=== PATIENT | male | born 1980 | race Caucasian/White ===

== ENCOUNTER 2018-09-10 02:47 | Emergency (ER) | payer OTHER, SELFPAY ==
[2018-09-10 02:48] VITALS: BP 164/111; PULSE 117; RESP 18; TEMP 36.6; O2SAT 100; BMI 22.9
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
--- NOTE | 2018-09-10 03:11 | ED.DEP ---
ED Disposition - Plan for ED Patient: Disposition: Home or Assisted Living Chief Complaint: Eye Problem Instructions: ED Contusion Eye Referrals: Beni Medina MD [STAFF PHYSICIAN] - As Needed
--- NOTE | 2018-09-10 03:15 | NURSING ---
PT DOES NOT HAVE GLASSES. IS UNABLE TO PERFORM ACUITY TEST.
[2018-09-10 03:16] VITALS: RESP 18
== END 2018-09-10 03:16 | disposition home or self-care (01) ==
PROVIDERS: Emergency Provider Emergency Medicine
DX: S00.12XA Contusion of left eyelid and periocular area, initial encounter (principal); W50.0XXA Accidental hit or strike by another person, initial encounter
CPT/HCPCS: 99282

== ENCOUNTER → 2019-07-01 06:36 | Outpatient (CLI) | payer OTHER, SELFPAY ==
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
== END ==
PROVIDERS: Referring Provider Psychiatry & Neurology Neurology; Visit Provider Psychiatry & Neurology Neurology
DX: S09.90XD Unspecified injury of head, subsequent encounter (principal); R51 Headache
CPT/HCPCS: 70553; A9575

== ENCOUNTER → 2020-04-07 08:19 | Outpatient (CLI) | payer OTHER, SELFPAY ==
--- NOTE | 2020-04-07 08:19 | RAD_ITS ---
STUDY: X-RAY - LEFT HAND REASON FOR EXAM: Male, 40 years old. Possible trigger finger---pain and and quot;catching and quot; index finger TECHNIQUE: 3 view(s) of the hand. COMPARISON: None. FINDINGS: Normal radiocarpal articulation. Normal distal radioulnar joint. Normal visualized carpal bones. Normal carpal articulations Normal carpometacarpal articulation of the thumb. Normal second through fifth carpometacarpal joints. Normal metacarpi. Normal metacarpophalangeal joint of the thumb. Normal interphalangeal joint of the thumb. Normal proximal and distal phalanges of the thumb. Normal metacarpophalangeal joints of the second through fifth fingers. Normal proximal and distal interphalangeal joints of the second through fifth fingers. Normal phalanges of the second through fifth fingers. The soft tissue structures are unremarkable. RAD/Hand Min 3 Views IMPRESSION: Normal x-ray examination of the hand. Electronically Signed: Ethan Dupont MD at 8:44 EDT , Service support ,
== END ==
PROVIDERS: Referring Provider Orthopaedic Surgery; Visit Provider Orthopaedic Surgery
DX: M79.642 Pain in left hand (principal)
CPT/HCPCS: 73130

== ENCOUNTER 2020-11-19 21:19 | Emergency (ER) | payer OTHER, SELFPAY ==
[2020-04-07 10:42] VITALS: BMI 22.9
[2020-11-19 21:20] VITALS: BP 148/91; PULSE 116; RESP 16; TEMP 36.3; O2SAT 97; BMI 25.0
[2020-11-19] MEDS: Fluorescein 1 MG STRIP 1 STRIP LEFT EYE (21:32)
[2020-11-19] MEDS: Tetracaine 0.5% Ophthalmic Bottle 3 DRP LEFT EYE ×2 (21:32→23:37)
[2020-11-19] MEDS: Diphth,Pertuss(Acell),Tet Vac 0.5 ML Vial IM (21:33)
--- NOTE | 2020-11-19 21:33 | ED.VIS.EYE ---
History of Present Illness Chief Complaint: Eye Problem Informant: Patient Location: Left Eye Onset: Today - JPTA Context: Sudden Onset Timing: Continuous Current Severity: Severe Maximum Severity: Severe Worsened by: light Relieved by: nothing Associated Symptoms - Eyes: Foreign body sensation, Pain, Photophobia, Redness, - - watering History of injury: Yes, Direct trauma - dog accidentally caught him in his left eye w/ paw/claw while laying down in their bed Visual correction: Glasses Narrative: Was accidentally scratched in the eye has their dog was stretching out in bed close to him. Trouble seeing out of that eye, blurry due to tearing. Wears glasses no contacts. Isolated injury. Last tetanus over 10 years ago. Past Medical History - Allergies and Home Meds Allergies/Adverse Reactions: Allergies No Known Allergies Allergy (Verified 11/19/20 21:19) Primary Care Physician: Care Physician,No Primary [Primary Care Provider] - Past Medical History: None Lives: Spouse/ Significant Other Smoking Status: Current every day smoker Review of Systems Eyes: Reports: Blurred vision - left, - - Left eye pain and redness. Denies: Diplopia Gastrointestinal: Denies: Nausea, Vomiting Skin: Denies: Rash, Wounds Neurological: Denies: Headache, Weakness, Numbness Physical Exam Visual Acuity: right: 20/30, left: 20/50, bilateral: 20/40 Visual Acuity: Corrected Eyelid: Erythema left eyelid - Diffuse due to inflammation, no focal injury Right Conjunctiva/Sclera: Diffuse focal injection - Diffuse without gross injury present Left Cornea: Corneal abrasion - superficial flap still attached at top; neg jaky sign, Foreign body - punctate on surface, 5 o'clock from abrasion Extraocular Motion: Normal exam, No pain, No palsy, No nystagmus Pupils: Normal accomodation, PERRL Anterior chamber: Normal exam, Deep and quiet Vital Signs/Narrative: Vital Signs Temp Pulse Resp BP Pulse Ox 11/19/20 21:20 97.3 F L 116 H 16 148/91 H 97 General: Well nourished, Well developed, - - NAD Head: Normocephalic, Atraumatic Skin: Normal color, No rash, No Trauma Neurological: Alert, Oriented x3, Cranial nerves II-XII grossly intact, Normal Strength, Normal Sensation, Normal Gait Psychological: Normal affect, Normal Mood Diagnostic/Tx/Re-eval - Treatment and Re-Evaluation Irrigation: NS Tetracaine: left eye Antibiotic: left eye - Medical Decision Making Patient with resolution of pain with topical tetracaine. Corneal flap was visualized with and without fluorescein dye. There does not seem to be penetration into the anterior chamber. The flap does appear to be superficial, and it is still attached in the 1-2 o'clock region of it, the entire flap is vertical and just to the patient's left of center. Discussed with Dr. Alvarez, he advises topical antibiotic ointment along with a gentle pressure eyepatch/shield with several layers of gauze underneath the prevent the patient from being able to open his eyelid. He will see him in the office at 8 AM in the morning. Patient was given a prescription for a few analgesic Gillett to use as needed. His tetanus was updated. With gentle irrigation at the eyewash station in the department, the small speck foreign body on the surface was removed. ED Disposition - Plan for ED Patient: Disposition: Home or Assisted Living Diagnosis: Corneal abrasion, left Instructions: Corneal Injury Prescriptions: Hydrocodone Bitart/Apap 5-325 [Gillett 5MG-325MG] 1 tab PO Q4H PRN PRN 2 Days #8 tab PRN Reason: Pain Prescription Printed Referrals: Lexa Alvarez MD [STAFF PHYSICIAN] - (tomorrow at 8am -- keep shield in place until then)
[2020-11-19] MEDS: Erythromycin Base 1 OPTH.TUBE 1 APPLIC LEFT EYE (22:48)
== END 2020-11-19 22:55 | disposition home or self-care (01) ==
PROVIDERS: Emergency Provider Emergency Medicine
DX: S05.02XA Injury of conjunctiva and corneal abrasion without foreign body, left eye, initial encounter (principal); F17.200 Nicotine dependence, unspecified, uncomplicated; X58.XXXA Exposure to other specified factors, initial encounter
CPT/HCPCS: 90715; 96372; 99284

== ENCOUNTER 2022-05-30 10:24 | Emergency (ER) | payer OTHER, SELFPAY ==
[2022-05-30 10:25] VITALS: BP 168/105; PULSE 87; RESP 14; TEMP 35.7; O2SAT 100; BMI 20.9
--- NOTE | 2022-05-30 10:44 | EX.ED.DYSGE1 ---
HPI History of Present Illness Chief Complaint: Nausea/Vomiting Narrative Narrative: Patient is withdrawing from Cymbalta. He last took it about 3 days ago, he wants to stop taking it he does not like the way it makes him feel, he was on 60 mg and he stopped cold turkey. He is getting mood swings, panic attacks anxiety and episodes of crying uncontrollably. PFSH PFSH Home Medications hydroxyzine pamoate 50 mg capsule (Vistaril) 50 mg PO TID #14 caps 05/30/22 [Rx Last Taken Unknown] lorazepam 0.5 mg tablet (Ativan) 0.5 mg PO TID PRN anxiety #10 tabs 05/30/22 [Rx Last Taken Unknown] ondansetron 4 mg disintegrating tablet 4 mg PO Q8H #14 tabs 05/30/22 [Rx Last Taken Unknown] Allergy/AdvReac Type Severity Reaction Status Date / Time No Known Allergies Allergy Verified 05/30/22 10:25 Social History Smoking Status: Current every day smoker ROS ROS ED ROS Narrative Past medical history: Reviewed Medications: Reviewed Social history: Noncontributory Review of systems: All systems negative except as indicated General: No fever Eyes: No visual changes ENT: No upper airway congestion, normal voice Neck: No neck pain Cardiovascular: No chest pain Respiratory: No shortness of breath or cough Gastrointestinal: No abdominal pain, some nausea is present. Genitourinary: No dysuria Musculoskeletal: Denies myalgias no difficulty with ambulation Skin: No rash Neurological: No memory loss, confusion or any focal weakness Psych: As in HPI, otherwise denies suicidal ideations Hematologic: No easy bleeding or easy bruising EXAM Physical Exam Narrative Exam Narrative: Physical exam General: Well nourished, Well developed, No Acute Distress he is somewhat hypertensive on triage vitals Head: Normocephalic, Atraumatic Eyes: Conjunctiva not pale ENT: Moist mucous membranes Neck: Supple, Nontender, No lymphadenopathy Cardiovascular: Regular rate, Regular rhythm Respiratory: No distress, CTA bilaterally Abdomen: Soft, Nontender, Nondistended Back: Nontender, Normal Inspection. Negative for: CVA tenderness Extremities: Nontender, No edema Skin: Normal color, No rash Neurological: Alert, Normal Strength, Normal Sensation Psychological: Somewhat anxious but otherwise lucid and coherent. Const Vital Signs: 05/30/22 10:25 Temperature 96.3 F L Temperature Source Temporal Pulse Rate 87 Respiratory Rate 14 Blood Pressure 168/105 H Blood Pressure Mean 126 Pulse Ox 100 Oxygen Delivery Method Room Air MDM MDM MDM Narrative Medical decision making narrative: Patient does not want to continue Cymbalta. I will treat him symptomatically through his withdrawal Discharge Plan Triage Chief Complaint: Nausea/Vomiting ED Provider: Nick Hutchinson Dx/Rx/DC Orders Clinical Impression: Withdrawal syndrome, Depression Instructions: Understanding Mood Disorders Prescriptions: New ondansetron 4 mg tablet,disintegrating 4 mg PO Q8H Qty: 14 0RF hydroxyzine pamoate [Vistaril] 50 mg capsule 50 mg PO TID Qty: 14 0RF lorazepam [Ativan] 0.5 mg tablet 0.5 mg PO TID PRN (Reason: anxiety) Qty: 10 0RF Primary Care Provider: Care Physician,No Primary Referrals: Care Physician,No Primary [Primary Care Provider] - 3-5 Days Disposition Disposition: Home, Self Care
== END 2022-05-30 11:15 | disposition home or self-care (01) ==
PROVIDERS: Emergency Provider Emergency Medicine; Visit Provider Emergency Medicine
DX: F19.939 Other psychoactive substance use, unspecified with withdrawal, unspecified (principal); F32.A Depression, unspecified; F17.200 Nicotine dependence, unspecified, uncomplicated
CPT/HCPCS: 99282

== ENCOUNTER → 2023-08-30 | Outpatient (CLI) | payer BC, SELFPAY ==
[2023-08-30 15:23] LABS: Absolute Lymphocyte Count 2.84 X10^3/uL (0.83-4.51); Absolute Neutrophil Count 3.1 X10^3/uL (2.0-7.7); Basophil# 0.04 X10^3/uL; Basophil% 0.6 % (0-1); Eosinophil# 0.09 X10^3/uL; Eosinophils% 1.3 % (0-5); Hematocrit 43.2 % (40-54); Hemoglobin 14.1 g/dL (13.0-16.5); Lymphocyte # 2.84 X10^3/ul (0.83-4.51); Lymphocyte % 41.9 % (19-41); Mean Corp Hgb Conc 32.6 g/dL (32-36); Mean Corpuscular Hgb 31.3 pg (27.0-32.0); Mean Corpuscular Volume 95.8 fL (80-94); Mean Platelet Vol. 9.1 fl (6.2-12.0); Monocyte# 0.66 X10^3/uL; Monocyte% 9.7 % (0-10); NRBC Flagged by Analyzer 0 % (0-5); Neutrophil # 3.12 X10^3/uL (2.7-7.7); Neutrophil % 46.2 % (47-70); Platelet Count 383 K/mm3 (150-450); RBC Distribution Width CV 12.5 % (11.6-14.6); RBC Distribution Width SD 44.1 fl (35.1-43.9); Red Blood Count 4.51 M/mm3 (4.6-6.2); White Blood Count 6.8 K/mm3 (4.4-11.0)
[2023-08-30 16:13] LABS: Hemoglobin A1c 4.8 % (3.8-5.6)
[2023-08-30 16:33] LABS: ALB/GLOB Ratio 1.1 RATIO (0.9-2.4); AST(SGOT) 21 U/L (15-37); Alanine Aminotransfer ALT/SGPT 32 U/L (16-61); Alkaline Phosphatase 54 U/L (45-117); Anion Gap 2 (5-15); BUN 13 mg/dL (7-18); Calcium,Total 9.2 mg/dL (8.5-10.1); Chloride 106 mmol/L (98-107); Cholesterol 226 mg/dL (200); Creatinine, Serum 0.86 mg/dL (0.70-1.30); EST Glomerular Filtration Rate 103 mL/min (>60); Est Glom Filt Rate - Afr Amer 125 mL/min (>60); Globulin 3.6 g/dL (2.2-4.2); Glucose 96 mg/dL (74-106); High Density Lipoprotein 71 mg/dL; Potassium 4.2 mmol/L (3.5-5.1); Protein, Total 7.6 g/dL (6.4-8.2); Sodium Level 139 mmol/L (136-145); Thyroid Stim Hormone (TSH) 1.09 uIU/mL (0.358-3.74); Triglycerides 68 mg/dL; Very Low Density Lipoprotein 14 mg/dL (5-40)
== END | disposition home or self-care (01) ==
LOC: MTLAB 12:35
PROVIDERS: PCP Family Medicine; Referring Provider Family Medicine; Visit Provider Family Medicine
DX: Z13.228 Encounter for screening for other metabolic disorders (principal); Z12.5 Encounter for screening for malignant neoplasm of prostate; Z13.1 Encounter for screening for diabetes mellitus; Z13.0 Encounter for screening for diseases of the blood and blood-forming organs and certain disorders involving the immune mechanism; Z13.220 Encounter for screening for lipoid disorders
CPT/HCPCS: 36415; 80053; 80061; 83036; 84153; 84443; 85025; G0103

== ENCOUNTER 2024-06-10 03:17 | Emergency (ER) | payer BC, SELFPAY ==
[2024-06-10 03:18] VITALS: BP 174/116; PULSE 78; RESP 16; TEMP 36.6; O2SAT 98; BMI 23.5
--- NOTE | 2024-06-10 03:41 | ED.VIS.DENTA ---
HPI History of Present Illness Chief Complaint: Dental Narrative Narrative: Chief complaint and HPI: 44-year-old male presents for evaluation of left lower tooth pain. Patient states 2 days ago he developed left lower tooth pain. He states that the pain has progressively worsened and not improved. He states he saw his dentist about a month ago. He denies any fever, chills, nausea, vomiting, sore throat, neck pain. Denies any difficulty tolerating secretions. Patient has been taking Tylenol and ibuprofen as needed for pain. He states he has been getting little relief from this. Review of systems: See HPI Medications: As listed on the chart Allergies: As listed on the chart PFSH: Per chart Vital signs: As listed on the chart. Reviewed. Physical exam: Gen: A&O x3, NAD Head: Normocephalic, atraumatic Eyes: No sclera icterus, conjunctiva clear, PERRL, EOMI ENT: TMs clear BL, moist mucous membranes, posterior oropharynx unremarkable, uvula midline, tonsils not enlarged, no tonsillar exudates, tongue non-swollen, no submandibular swelling, no Reilly angina, patient has poor dentition with multiple broken teeth, he has swelling to the gingiva of the left lower mouth, tender to palpation of the left # 18 molar. Tooth is broken. No dental abscess to drain. Neck: Trachea midline, No JVD, Full ROM, No meningismus, no lymphadenopathy CV: Regular Resp: Nonlabored respiration Skin: Warm, dry, no rash Neuro: Alert, oriented, grossly intact Psych: Cooperative, appropriate mood and affect [facility] Medical History (Updated 06/10/24 @ 03:[address] Jesus Truong DO) Depression Anxiety Home Medications ?Medication ?Instructions ?Recorded ?Last Taken ?Type amoxicillin 875 mg-potassium 875 mg PO Q12H #20 TABLETS 06/10/24 Unknown Rx clavulanate 125 mg tablet aripiprazole 5 mg tablet (Abilify) 5 mg PO DAILY 06/10/24 Unknown History fluoxetine 20 mg capsule (Prozac) 20 mg PO DAILY 06/10/24 Unknown History hydrocodone-acetaminophen 5-325mg 1 tab PO Q6H PRN PRN Pain 3 days 06/10/24 Unknown Rx 5mg-325mg #10 TABLETS Allergy/AdvReac Type Severity Reaction Status Date / Time No Known Allergies Allergy Verified 06/10/24 03:18 Social History Smoking Status: Current every day smoker tobacco type: cigarettes EXAM Physical Exam Const Vital Signs: 06/10/24 03:18 Temperature 97.9 F Temperature Source Temporal Pulse Rate 78 Respiratory Rate 16 Blood Pressure 174/116 H Blood Pressure Mean 135 Pulse Ox 98 MDM MDM MDM Narrative Medical decision making narrative: 44-year-old male presents for evaluation of left lower dental pain. See physical exam findings. Suspect dental infection from broken tooth. No abscess to I&D. Patient given Somers for pain as well as first dose of Augmentin for dental infection. He will be given a prescription for Augmentin. He was told to follow-up with his dentist. He was told he could take 600 to 800 mg ibuprofen every 4-6 hours. He confirmed understanding of plan. Patient stable to discharge home. No driving or operating heavy machinery while on narcotics. Impression: 1. Left lower dental infection Discharge Plan Triage Chief Complaint: Dental ED Provider: Jesus Truong Dx/Rx/DC Orders Clinical Impression: Dental infection Instructions: ED Dental Pain Prescriptions: New hydrocodone-acetaminophen 5-325 mg tablet 1 tab PO Q6H PRN PRN (Reason: Pain) 3 Days Qty: 10 0RF amoxicillin-pot clavulanate 875-125 mg tablet 875 mg PO Q12H Qty: 20 0RF No Action fluoxetine [Prozac] 20 mg capsule 20 mg PO DAILY aripiprazole [Abilify] 5 mg tablet 5 mg PO DAILY Primary Care Provider: Jose R Song Referrals: Jose R Song MD [Primary Care Provider] - 3-5 Days Activity Restrictions/Additional Instructions: Follow-up with your dentist as soon as possible. 600 to 800 mg ibuprofen every 4-6 hours[address] or operating heavy machinery while on narcotics. Print Language: Mongolian Disposition Disposition: Home, Self Care
[2024-06-10] MEDS: HYDROcodone Bitartrate/Apap 5/325 Tablet PO (04:00)
[2024-06-10] MEDS: Amox/Clavulanate 875 MG Tablet PO (04:01)
[2024-06-10 04:02] VITALS: BP 149/77; PULSE 76; RESP 16; TEMP 36.6; O2SAT 98
== END 2024-06-10 04:03 | disposition home or self-care (01) ==
PROVIDERS: Emergency Provider Surgery; PCP Family Medicine; Visit Provider Surgery
DX: K04.7 Periapical abscess without sinus (principal); F17.210 Nicotine dependence, cigarettes, uncomplicated
CPT/HCPCS: 99283

== ENCOUNTER 2025-06-14 10:51 | Emergency (ER) | payer BC, SELFPAY ==
--- OUTSIDE RECORDS SUMMARY | 2025-05-19 11:00 | XMS RPT_ITS ---
Author Name Auto Generated Organization [facility] Care Team Providers Care Executive Business Coach Name Role Phone JOSE E BANKS Attending Unavailable PROBLEMS DATE TYPE CONDITION / CODE ATTENDING STATUS FRANCY RCE 05/19/2025 Active URI, acute / J06.9(ICD-10) JOSE E BANKS Active [facility] PROCEDURES No Procedure Records Found RESULTS CNOV Observed: 05/19/2025 12:00 PM Status: COMPLETED Source: [facility] Office Visit ([facility]) SEBASTIAN GUILLEN ([id number]) 1980 M Date Time Provider Department 05/19/25 12:00 PM JOSE E BANKS During your visit today, we recorded the following information about you: Temperature Pulse Respiration Blood pressure 97.5 degrees 75/minute 16/minute 126/82 Weight 66.5 kg Jose E Banks MD 05/19/2025 11:17 AM Signed Cough You have been seen for your cough. There are many possible causes of cough. Most are not dangerous. Your doctor has determined that it is OK for you to go home today. Your doctor believes your cough was caused by bacteria. Your doctor prescribed an antibiotic that will fight the bacteria. The doctor may have prescribed some medicine to help with your cough. Use the medicine as directed. YOU SHOULD SEEK MEDICAL ATTENTION IMMEDIATELY, EITHER HERE OR AT THE NEAREST EMERGENCY DEPARTMENT, IF ANY OF THE FOLLOWING OCCURS: You wheeze or have trouble breathing. You cough up mucous or lose weight for no reason. You have a fever (temperature higher than 100.4?F / 38?C) that lasts more than 5 days. You have chest pain. Your symptoms get worse or do not get better in 2 or 3 days. You have any new problems or concerns. Jose E Banks MD 05/19/2025 11:19 AM Signed [facility] Subjective Sebastian Guillen is a 45 year old male. Patient presents with: Cough: Cough, sinus, ST x 5 days 5-6 day hx of uri sx not getting better now post nasal drip sinus pressure and a cough worse at night no fever no chills no dyspnea Cough Pertinent negatives include no chills, no headaches, no shortness of breath and no wheezing. Review of Systems Constitutional: Negative for chills, fatigue and fever. HENT: Positive for congestion, postnasal drip, sinus pressure and sinus pain. Respiratory: Positive for cough. Negative for shortness of breath, wheezing and stridor. Neurological: Negative for dizziness and headaches. Objective BP 126/82 Pulse 75 Temp 36.4 ?C (97.5 ?F) (Tympanic) Resp 16 Wt 66.5 kg (146 lb 9.7 oz) SpO2 98% BMI 23.66 kg/m? Physical Exam Vitals and nursing note reviewed. Constitutional: Appearance: Normal appearance. He is not ill-appearing. HENT: Right Ear: Tympanic membrane and ear canal normal. Left Ear: Tympanic membrane and ear canal normal. Nose: Congestion present. Mouth/Throat: Mouth: Mucous membranes are moist. Pharynx: Oropharynx is clear. Cardiovascular: Rate and Rhythm: Normal rate and regular rhythm. Heart sounds: Normal heart sounds. Pulmonary: Effort: Pulmonary effort is normal. Breath sounds: Normal breath sounds. No stridor. No wheezing, rhonchi or rales. Neurological: Mental Status: He is alert and oriented to person, place, and time. Psychiatric: Mood and Affect: Mood normal. Behavior: Behavior normal. {ASSESSMENT/PLAN: 1. URI, acute - ICD9: 465.9, ICD10: J06.9 Return here as needed - DOXYCYCLINE HYCLATE 100 MG CAPSULE - METHYLPREDNISOLONE 4 MG TABLETS IN A DOSE PACK Jose E Banks MD Differential Diagnoses - uri is more likely for the following reason(s): suggested by HANDP - pneumonia is less likely for the following reason(s): HANDP not suggestive Disposition The patient was discharged. Procedures Allergies As of Date: 05/19/2025 Noted Allergy Reaction ATROPINE 05/25/2021 2 - Rash Date Reviewed: 05/19/2025 Reviewed by: Fern Payne LPN - Fully Assessed Reason for Visit: Cough [28] Cmt: Cough, sinus, ST x 5 days Primary Visit Diagnosis:URI, acute [J06.9] Order(s):doxycycline hyclate (VIBRAMYCIN) 100 mg capsuleTake 1 capsule by mouth two times a day for 7 days.Disp: 14 capsuleRfl: 0 methylPREDNISolone (MEDROL, STEFAN,) 4 mg Dose-PackTake as instructed per package.Disp: 21 tabletRfl: 0 Prescriptions as of 05/19/2025 - doxycycline hyclate (VIBRAMYCIN) 100 mg capsule Take 1 capsule by mouth two times a day for 7 days. - methylPREDNISolone (MEDROL, STEFAN,) 4 mg Dose-Pack Take as instructed per package. - meloxicam (MOBIC) 15 mg tablet Take 1 tablet by mouth once daily. - DULoxetine (CYMBALTA) 20 mg capsule Take 1 capsule by mouth once daily. - [id number] (REFRESH OPTIVE STEPHANY-3, PF,) 0.5-1-0.5 % dpet Use 1 mL in the left eye four times daily. 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 There are many possible causes of cough. Most are not dangerous. Your doctor has determined that it is OK for you to go home today. Your doctor believes your cough was caused by bacteria. Your doctor prescribed an antibiotic that will fight the bacteria. The doctor may have prescribed some medicine to help with your cough. Use the medicine as directed. YOU SHOULD SEEK MEDICAL ATTENTION IMMEDIATELY, EITHER HERE OR AT THE NEAREST EMERGENCY DEPARTMENT, IF ANY OF THE FOLLOWING OCCURS: You wheeze or have trouble breathing. You cough up mucous or lose weight for no reason. You have a fever (temperature higher than 100.4?F / 38?C) that lasts more than 5 days. You have chest pain. Your symptoms get worse or do not get better in 2 or 3 days. You have any new problems or concerns. Prescriptions ordered this encounter Disp Refills Start End DOXYCYCLINE HYCLATE 100 MG CAPSULE 14 c* 0 05/19/2025 05/26/2025 Route: PO Sig: Take 1 capsule by mouth two times a day for 7 days. METHYLPREDNISOLONE 4 MG TABLETS IN A* 21 t* 0 05/19/2025 05/25/2025 Sig: Take as instructed per package. Level of Service: OFFICE/OUTPATIENT ESTABLISHED MOD [facility] 30 MIN [[id number]] Encounter Status:Closed by JOSE E BANKS on 05/19/25 PROGRESS Observed: 05/19/2025 11:17 AM Status: COMPLETED Source: [facility] HNO ID: [id number] Author: JOSE E BANKS MD Service: ? Author Type: Physician Type: Progress Notes Filed: 05/19/2025 11:19 Note Text: [facility] Guillen is a 45 year old male. Patient presents with: Cough: Cough, sinus, ST x 5 days 5-6 day hx of uri sx not getting better now post nasal drip sinus pressure and a cough worse at night no fever no chills no dyspnea Cough Pertinent negatives include no chills, no headaches, no shortness of breath and no wheezing. Review of Systems Constitutional: Negative for chills, fatigue and fever. HENT: Positive for congestion, postnasal drip, sinus pressure and sinus pain. Respiratory: Positive for cough. Negative for shortness of breath, wheezing and stridor. Neurological: Negative for dizziness and headaches. Objective BP 126/82 Pulse 75 Temp 36.4 ?C (97.5 ?F) (Tympanic) Resp 16 Wt 66.5 kg (146 lb 9.7 oz) SpO2 98% BMI 23.66 kg/m? Physical Exam Vitals and nursing note reviewed. Constitutional: Appearance: Normal appearance. He is not ill-appearing. HENT: Right Ear: Tympanic membrane and ear canal normal. Left Ear: Tympanic membrane and ear canal normal. Nose: Congestion present. Mouth/Throat: Mouth: Mucous membranes are moist. Pharynx: Oropharynx is clear. Cardiovascular: Rate and Rhythm: Normal rate and regular rhythm. Heart sounds: Normal heart sounds. Pulmonary: Effort: Pulmonary effort is normal. Breath sounds: Normal breath sounds. No stridor. No wheezing, rhonchi or rales. Neurological: Mental Status: He is alert and oriented to person, place, and time. Psychiatric: Mood and Affect: Mood normal. Behavior: Behavior normal. {ASSESSMENT/PLAN: 1. URI, acute - ICD9: 465.9, ICD10: J06.9 Return here as needed - DOXYCYCLINE HYCLATE 100 MG CAPSULE - METHYLPREDNISOLONE 4 MG TABLETS IN A DOSE PACK Jose E Banks MD Differential Diagnoses - uri is more likely for the following reason(s): suggested by HANDP - pneumonia is less likely for the following reason(s): HANDP not suggestive Disposition The patient was discharged. Procedures ALLERGIES DATE TYPE / CODE NAME / CODE REACTION SEVERITY SOURCE 05/25/2021 DRUG INGREDI/[id number](SN OMED CT) ATROPINE RASH [facility] ENCOUNTERS ADMIT/DISCHARGE ACCOUNT NUMBER ADMITTING ENCOUNTER CLASS LOC ATION SOURCE 05/19/2025/ 5 [id number] Ambulatory [facility] HospitalBuild ing:CASS [facility] PAYERS ENCOUNTER GUARANTOR PAYER SUBSCRIBER SOURCE 05/19/2025 Primary Insurance:BLUE CARD PPO OOSPolicy Number: [id number] jaswinder Date:[id number] Name:Dario ERICKSON JLUISPDOB: [id number] [place] [address] [facility]
[2025-06-14 10:52] VITALS: BP 207/130; PULSE 128; RESP 18; TEMP 36.2; O2SAT 100; BMI 22.1
--- NOTE | 2025-06-14 11:00 | ED.RN ---
patient brought in by parents. visibly anxious, pacing davila of ER. when asked if patient is having suicidal thoughts he reported yes with a plan to shoot myself in the head
--- NOTE | 2025-06-14 11:05 | EKG12_ITS ---
Test Reason : Blood Pressure : */* mmHG Vent. Rate : 115 BPM Atrial Rate : 115 BPM P-R Int : 164 ms QRS Dur : 78 ms QT Int : 326 ms P-R-T Axes : 32 28 12 degrees QTcB Int : 450 ms Sinus tachycardia Otherwise normal ECG Confirmed by JOJO VERMA, MATT ([id number]), sports editor DONY ISIDRO ([id number]) on 06/16/2025 8:00:57 AM Referred By: Confirmed By: MATT URIBE MD
--- NOTE | 2025-06-14 11:06 | EDS_ITS ---
HPI HPI - Psych History of Present Illness Chief Complaint: Suicidal Detail of Chief Complaint: Anxiety and depression Informant: patient and parent Narrative Narrative: Patient presents to the emergency department complaint of anxiety and depression and thoughts of self-harm. Patient states that he is feeling at everything and is not there for his family like he should be. He states he cannot do his job anymore. Having thoughts of shooting himself and has access to guns but has a family so he does not really know if he would actually do it. Denies any hallucinations. He does have some compulsions and tics where he verbalizes wanting to kill himself. Currently not being medicated for anxiety or depression and states in the past medicine has not helped him. Patient denies recent illness. Parents brought him in because he needs help. He is having a hard time sleeping at night on he does take THC Gummies to sleep. He also takes kratom. He has a smoker and drinks alcohol. [facility] Medical History (Updated 06/14/25 @ 15:[address] Carolyn Wilkinson, ) Depression Anxiety Home Medications ?Medication ?Instructions ?Recorded ?Last Taken ?Type aripiprazole 5 mg tablet (Abilify) 5 mg PO DAILY 06/10 Unknown History fluoxetine 20 mg capsule (Prozac) 20 mg PO DAILY 06/10 Unknown History Allergy/AdvReac Type Severity Reaction Status Date / Time No Known Allergies Allergy Verified 06/14/25 10:51 Social History Smoking Status: Current every day smoker tobacco type: cigarettes ROS ROS ED Review of Systems ROS Unobtainable: other Constitutional Constitutional ED: Reports lethargy; Denies chills, fever(s), sweats or weight loss Eyes Eyes: Denies blurry vision, change in vision or diplopia ENT ENT ED: Denies rhinorrhea or sore throat Cardiovascular Cardiovascular: Denies chest pain, orthopnea or racing heartbeat Respiratory/Chest Respiratory/Chest: Denies cough, dyspnea, dyspnea on exertion, orthopnea or sputum Gastrointestinal Gastrointestinal: Denies abdominal pain, diarrhea, nausea or vomiting Genitourinary Genitourinary ED: Denies dysuria, hematuria or urinary frequency Musculoskeletal Musculoskeletal: Denies arthralgias, back pain, myalgias or neck pain Integumentary Denies abscess, Abrasions or rash Neurologic Neurologic: Denies headache(s) or weakness Psychiatric Psychiatric: Reports anxiety and depression; Denies suicidal thoughts Endocrine Endocrinology: Denies polydipsia, polyphagia or polyuria Hematologic/Lymphatic Hematologic/Lymphatic: Denies easy bleeding, easy bruising or lymphadenopathy Allergic/Immunologic Allergic/Immunologic ED: Denies mouth swelling, tongue swelling or urticaria EXAM Physical Exam Const Vital Signs: 06/14/25 10:52 06/14/25 14:36 Temperature 97.2 F L Temperature Source Temporal Pulse Rate 128 H 98 Respiratory Rate 18 16 Blood Pressure 207/130 H 147/103 H Blood Pressure Mean 155 117 Pulse Ox 100 99 Oxygen Delivery Method Room Air Room Air Positive well nourished and well developed General Appearance ED: well developed and NAD HEENT Reports TM's clear and moist mucous membranes normocephalic and atraumatic; Negative for trauma or tenderness Tympanic Membrane ED: Yes TM's clear Eyes PERRL and EOMs intact bilaterally General Eye ED: Negative for pale conjunctiva or scleral icterus Neck no lymphadenopathy, supple and no JVD General: Negative for tenderness Chest Wall inspection of chest normal and palpation of chest normal Chest: Negative for tenderness Resp normal respiratory effort and clear to auscultation bilaterally Effort and Inspection: Negative for respiratory distress or pain with movement Auscultation: Negative for rhonchi, wheezes or diminished lung sounds Cardio regular rate, regular rhythm, S1 normal heart sound, S2 normal heart sound and no murmurs Peripheral Pulses: pulses 2+ throughout GI normal to inspection, nondistended, normoactive bowel sounds, soft to palpation, non-tender, non-distended and no masses Back/Spine no CVA tenderness and no thoracic nor lumbar tenderness Extremity normal to inspection General Extremety ED: Negative for edema General Extremity: Negative for edema Neuro oriented x3, CN's II-XII intact bilaterally, no sensory deficits noted and gait normal Sensorium / Orientation: awake, alert, oriented to person, oriented to place and oriented to time Motor Exam: strength 5/5 throughout and strength abnormal Psych mental status grossly normal and denies homicidal ideation Psych Narrative: Suicidal ideation Mood & Affect: depressed and tearful Skin no rashes or lesions noted and no wounds MDM MDM MDM Narrative Medical decision making narrative: Patient presents with anxiety and depression and suicidal ideations. CBC with differential unremarkable. Chemistries unremarkable. Urine tox screen positive for THC. Alcohol less than 10. EKG showed sinus rhythm with rate of 115 bpm with no acute ST segment changes. I will have social scientist evaluate patient for possible placement to psychiatric facility for definitive care management and care. He did receive Ativan on arrival to the emergency department. Lab Data Attestation: I reviewed the patient's lab results. Labs: Laboratory Results - last 24 hr 06/14/25 06/14/25 11:11 11:38 WBC 5.8 RBC 4.47 L Hgb 14.1 Hct 41.7 MCV 93.3 MCH 31.5 MCHC 33.8 RDW Std Deviation 43.2 RDW Coeff of Steve 12.6 Plt Count 362 MPV 8.9 Immature Gran % (Auto) 0.200 Neut % (Auto) 65.3 Lymph % (Auto) 24.1 Scott % (Auto) 9.8 Eos % (Auto) 0.3 Baso % (Auto) 0.3 Absolute Neuts (auto) 3.8 Absolute Lymphs (auto) 1.40 Nucleated RBC % 0 Sodium 136 Potassium 3.5 Chloride 99 Carbon Dioxide 22.3 Anion Gap 15 BUN 8 Creatinine 0.83 Estim Creat Clear Calc 106.90 Est GFR (MDRD) Non-Af 111 BUN/Creatinine Ratio 10.1 Glucose 121 H Calcium 9.2 Urine Opiates Screen NEGATIVE U Buprenorphine Qual NEGATIVE Ur Oxycodone Screen NEGATIVE Urine Methadone Screen NEGATIVE Urine Fentanyl Screen NEGATIVE Ur Barbiturates Screen NEGATIVE Ur Phencyclidine Scrn NEGATIVE Ur Amphetamines Screen NEGATIVE U Benzodiazepines Scrn NEGATIVE Urine Cocaine Screen NEGATIVE U Cannabinoids Screen PRESUMPTIVE POSITIVE Ethyl Alcohol < 10.1 EKG Initial EKG: Attestation: I personally reviewed and interpreted this EKG as follows: Comments: Sinus tachycardia with rate of 115 bpm with no acute ST segment changes Discharge Plan Triage Chief Complaint: Suicidal Other Complaint: Anxiety ED Provider: Carolyn Wilkinson Dx/Rx/DC Orders Clinical Impression: Depression, Anxiety, Suicidal ideation Prescriptions: No Action fluoxetine [Prozac] 20 mg capsule 20 mg PO DAILY aripiprazole [Abilify] 5 mg tablet 5 mg PO DAILY Primary Care Provider: Jose R Song Referrals: Jose R Song MD [Primary Care Provider, Family Practice] Print Language: Albanian
--- NOTE | 2025-06-14 11:24 | ED.RN ---
PT DOES ADMIT TO BEING SUICIDAL. PT STATES HE DOES HAVE A LOADED GUN AT HOME. SECURITY AT BEDSIDE SITTING WITH PT. PT COOPERATIVE BUT HOSTILE AT PRESENT TIME
[2025-06-14 11:31] LABS: Hematocrit 41.7 % (40-54); Hemoglobin 14.1 g/dL (13.0-16.5); Immature Granulocytes Count 0.010 X10^3/uL (0.0-0.0); Mean Corp Hgb Conc 33.8 g/dL (32-36); Mean Corpuscular Volume 93.3 fL (80-94); Mean Platelet Vol. 8.9 fl (6.2-12.0); NRBC Flagged by Analyzer 0 % (0-5); Platelet Count 362 K/mm3 (150-450); RBC Distribution Width CV 12.6 % (11.6-14.6); RBC Distribution Width SD 43.2 fl (35.1-43.9); Red Blood Count 4.47 M/mm3 (4.6-6.2); White Blood Count 5.8 K/mm3 (4.4-11.0)
[2025-06-14 11:49] LABS: Alcohol, Blood (Medical)-Serum < 10.1 mg/dL (<=10.0); Anion Gap 15 (5-15); BUN 8 mg/dL (4-19); BUN/Creat Ratio 10.1 RATIO (10-20); Calcium,Total 9.2 mg/dL (7.6-11.0); Carbon Dioxide 22.3 mmol/L (21.0-32.0); Chloride 99 mmol/L (98-108); Estimated Creatinine Clearance 106.90 ml/min (50-250); Glucose 121 mg/dL (70-99); Potassium 3.5 mmol/L (3.3-5.1)
[2025-06-14 11:57] LABS: Barbiturate Urine NEGATIVE (< 200 ng/mL); Benzodiazepine Urine NEGATIVE (< 200 ng/mL); PCP Urine NEGATIVE (< 25 ng/mL); THC Urine PRESUMPTIVE POSITIVE (< 50 ng/mL)
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
[2025-06-14 14:36] VITALS: BP 147/103; PULSE 98; RESP 16; O2SAT 99
[2025-06-14] MEDS: Nicotine (PBKC) 21 MG Patch TD (15:16)
--- NOTE | 2025-06-14 18:16 | CM.ED ---
Social Work Placement seeking call history and outcomes: [facility]: Spoke with [facility], no beds available. [facility] would be tomorrow. [facility]: Spoke with Ken[facility], no beds available. [facility]: Spoke with [facility], no openings. [facility]: Spoke with Juli, has available beds. [employer] faxed over referral packet. (17:23) [employer] received call back from Rashmi with [facility]. They will accept patient. Accepting doctor: Dr. Ace. Patient will be going to [id number]. Nurse to nurse number: [phone]. [employer] will fax over pink slip and will update patient. (18:08) [employer]er [employer]r updated patient and provided patient with a pamphlet. Patient appreciative. (18:16) Bozena Gil, [employer] P[employer]ER, PHOTO SPECIALIST
--- NOTE | 2025-06-14 19:15 | ED.RN ---
Attempted to call report twice with no answer.
--- NOTE | 2025-06-14 19:26 | ED.RN ---
Called report to [facility].
[2025-06-14 21:15] VITALS: BP 147/103; PULSE 98; RESP 16; TEMP 36.2; O2SAT 99
== END 2025-06-14 21:21 ==
PROVIDERS: Emergency Provider Emergency Medicine; PCP Family Medicine; Visit Provider Emergency Medicine
DX: F41.9 Anxiety disorder, unspecified (principal); F32.A Depression, unspecified; F17.210 Nicotine dependence, cigarettes, uncomplicated; R45.851 Suicidal ideations; Z79.899 Other long term (current) drug therapy
CPT/HCPCS: 80048; 80307; 82077; 85025; 93005; 99285